=== PATIENT | female | born 1980 | race Caucasian/White ===

== ENCOUNTER → 2016-07-31 | Outpatient (CLI) | payer BC ==
[~2016-07-31] MED LIST: KETO10TA PO; NAPR500T PO; ORPH100T PO; RT-ALBUINH IH
--- OUTSIDE RECORDS SUMMARY | 2016-07-31 07:59 | XMS REPORT ---
Author Author Dary Miller [facility] Address [address] [place], [place] [id number] Care Team Providers Care District Court Administrator Name Role Phone Dary Miller PCP Unavailable Allergies and Adverse Reactions Name Reaction Notes PENICILLINS Aspirin Plan of Treatment Not available. Medications Active Name Start Date Estimated Completion Date SIG Comments Medrol (Alon) 4 mg oral tablets,dose pack 07/17/2016 07/23/2016 take as directed for 6 days naproxen sodium 550 mg oral tablet 07/17/2016 07/31/2016 take 1 tablet (550 mg ) by oral route every 12 hours as needed for 14 days Problem List Not available. Vital Signs Date Time BP-Sys(mm[Hg] BP-Carolin(mm[Hg]) HR(bpm) RR(rpm) Temp WT HT HC BMI BSA BMI Percentile O2 Sat(%) 07/17/2016 6:28:00 PM 128 mmHg 72 mmHg 91 bpm 18 rpm 98.2 F 181 lbs 63 in 32.06 kg/m2 1.91 m2 98 % Social History Name Description Comments Tobacco Current every day smoker History of Procedures Not available. Results Summary Not available. History Of Immunizations Not available. History of Past Illness Name Date of Onset Comments Pleural pain Jul 17 2016 6:35PM Payers Insurance Name Company Name Plan Name Plan Number Policy Number Policy Group Number [id number] N/A History of Encounters Visit Date Visit Type Provider 07/17/2016 Office visit Dary Miller [employer]
--- NOTE | 2016-07-31 14:27 | Diagnostic Imaging Report ---
Bilateral diagnostic mammogram. The current study was also evaluated with a Computer Aided Detection (CAD) system. INDICATION: Right breast lump in the upper mid aspect of the right breast. FINDINGS: There are scattered fibroglandular densities. There is no mass, architectural distortion or suspicious cluster of calcification identified. IMPRESSION: No mammographic evidence of malignancy. Ultrasound evaluation of the palpable area is pending. ACR BI-RADS Category 0: Incomplete. (Needs additional imaging evaluation). Result letter will be mailed to the patient. Note: At least 10% of breast cancer is not imaged by mammography. Dictated by: Dictated on workstation # [id number]
--- NOTE | 2016-07-31 14:32 | Diagnostic Imaging Report ---
Right breast ultrasound. INDICATION: Right breast lump. FINDINGS: The lump is at 1 o'clock zone, far upper outer, with the area of the lump and surrounding region scanned with no underlying abnormality seen. IMPRESSION: Negative study. Clinical followup recommended. ACR BI-RADS Category 1: Negative. Result letter will be mailed to the patient. Note: At least 10% of breast cancer is not imaged by mammography. Dictated by: Dictated on workstation # [id number]
== END ==
LOC: RAD 07:57
PROVIDERS: ATTEND Nurse Practitioner Family
DX: N63 Unspecified lump in breast (principal)